=== PATIENT | female | born 1990 | race Caucasian/White ===

== ENCOUNTER 2017-04-05 12:33 | Inpatient (IN) | payer OTHER ==
[~2017-04-05] VITALS: Ht 170.2 cm; Wt 90.0 kg
[2017-04-05] MEDS ORDERED: TERBUTALINE 1 MG/ML, 1ML ONE (13:47)
[2017-04-05] MEDS ORDERED: TERBUTALINE 1 MG/ML, 1ML SQ ONE ×2 (14:00→15:30)
[2017-04-05] MEDS ORDERED: BETAMETHASONE 6 MG/ML, 5ML IM ONE (18:00)
[2017-04-05] MEDS ORDERED: PLEASE ENTER HEIGHT AND WEIGHT MC SCH (18:03)
[2017-04-05] MEDS: BETAMETHASONE 6 MG/ML, 5ML IM SCH (18:13)
[2017-04-05 20:00] VITALS: BP 128/74
[2017-04-05] MEDS ORDERED: NITROFURANTOIN (MACROBID) 100 MG CAPSULE ONE (20:45)
[2017-04-05] MEDS ORDERED: NITROFURANTOIN (MACROBID) 100 MG CAPSULE PO SCH (21:00)
[2017-04-05] MEDS ORDERED: MAGNESIUM SULF. PMX 20GM/500ML 500 ML IV ONE (22:56)
[2017-04-05] MEDS ORDERED: MAGNESIUM SULFATE PMX 4GM/100M 100 ML IVPB ONE (23:00)
[2017-04-05] MEDS ORDERED: CEFAZOLIN PMX 1GM/50ML 0 ML ONE (23:03)
[2017-04-05] MEDS: LACTATED RINGERS 1,000 ML IV PRN (23:24)
[2017-04-05] MEDS: MAGNESIUM SULF. PMX 20GM/500ML 500 ML IV SCH (23:26)
[2017-04-05] MEDS ORDERED: CEFAZOLIN PMX 2GM/50ML 50 ML IVPB SCH (23:30)
[2017-04-05] MEDS ORDERED: ONDANSETRON 2MG/ML, 2ML ONE (23:53)
[2017-04-06] MEDS ORDERED: ONDANSETRON 2MG/ML, 2ML IVPush PRN
[2017-04-06] MEDS ORDERED: INDOMETHACIN 25 MG CAPSULE PO ONE (03:00)
[2017-04-06] MEDS ORDERED: CEFAZOLIN PMX 2GM/50ML 50 ML IVPB SCH (06:00)
[2017-04-06] MEDS ORDERED: CEFAZOLIN PMX 1GM/50ML 50 ML ONE ×3 (06:01→18:05)
[2017-04-06] MEDS: CEFAZOLIN PMX 1GM/50ML 50 ML IVPB SCH ×3 (06:06→18:11)
[2017-04-06] MEDS ORDERED: MAGNESIUM SULF. PMX 20GM/500ML 500 ML IV ONE ×2 (06:30→17:11)
[2017-04-06] MEDS: MAGNESIUM SULF. PMX 20GM/500ML 500 ML IV SCH ×2 (06:33→17:14)
[2017-04-06 06:52] LABS: HEMATOCRIT 38.6 % (34.6-47.8); HEMOGLOBIN 13.1 g/dL (11.7-16.4)
[2017-04-06] MEDS: INDOMETHACIN 50 MG CAPSULE PO SCH ×5 (07:18→23:11)
[2017-04-06] MEDS: LACTATED RINGERS 1,000 ML IV PRN (12:04)
[2017-04-06] MEDS: BETAMETHASONE 6 MG/ML, 5ML IM SCH (18:12)
[2017-04-07] MEDS ORDERED: CEFAZOLIN PMX 1GM/50ML 50 ML ONE ×2 (00:10→06:12)
[2017-04-07] MEDS: CEFAZOLIN PMX 1GM/50ML 50 ML IVPB SCH ×2 (00:14→06:15)
[2017-04-07] MEDS ORDERED: MAGNESIUM SULF. PMX 20GM/500ML 500 ML IV ONE (03:02)
[2017-04-07] MEDS: INDOMETHACIN 50 MG CAPSULE PO SCH ×2 (03:04→07:13)
[2017-04-07] MEDS: LACTATED RINGERS 1,000 ML IV PRN (03:05)
[2017-04-07] MEDS: MAGNESIUM SULF. PMX 20GM/500ML 500 ML IV SCH (03:05)
[2017-04-07] MEDS ORDERED: DOCUSATE 100 MG CAPSULE ONE (09:24)
[2017-04-07] MEDS ORDERED: NITROFURANTOIN (MACROBID) 100 MG CAPSULE ONE ×2 (09:24→21:16)
[2017-04-07 09:30] VITALS: BP 114/64
[2017-04-07] MEDS ORDERED: DOCUSATE 50 MG/5 ML, 10ML UDC PO PRN (09:30)
[2017-04-07] MEDS: NITROFURANTOIN (MACROBID) 100 MG CAPSULE PO SCH ×2 (09:35→21:35)
[2017-04-07] MEDS ORDERED: CALCIUM CARBONATE 500 MG TAB.CHEW ONE (18:48)
[2017-04-07] MEDS: CALCIUM CARBONATE 500 MG TAB.CHEW PO PRN (18:50)
[2017-04-07 21:30] VITALS: BP 108/51
[2017-04-08] MEDS: SODIUM CHLORIDE FLUSH 3ML SYRINGE IVF SCH ×2 (09:30→19:55)
[2017-04-08] MEDS ORDERED: CALCIUM CARBONATE 500 MG TAB.CHEW ONE (19:53)
[2017-04-08] MEDS: CALCIUM CARBONATE 500 MG TAB.CHEW PO PRN (19:55)
[2017-04-08] MEDS ORDERED: DOCUSATE 100 MG CAPSULE ONE (21:07)
[2017-04-08] MEDS: DOCUSATE 100 MG CAPSULE PO PRN (21:14)
[2017-04-08] MEDS ORDERED: FENTANYL PF 100 MCG/2ML ONE ×2 (22:04→22:30)
[2017-04-08] MEDS ORDERED: LIDOCAINE 1%, 20ML ONE (22:30)
[2017-04-08] MEDS ORDERED: NEWBORN KIT ONE (22:30)
[2017-04-08] MEDS ORDERED: FENTANYL PF 100 MCG/2ML IV PRN (22:30)
[2017-04-08] MEDS ORDERED: OXYTOCIN 30U/ 0.9% NaCL 500ML 500 ML ONE ×2 (22:30→23:59)
[2017-04-08] MEDS ORDERED: MISOPROSTOL 200 MCG TABLET ONE (22:30)
[2017-04-08] MEDS ORDERED: FENTANYL PF 100 MCG/2ML IVPush PRN (22:30)
[2017-04-08] MEDS ORDERED: FENTANYL/BUPIV./NS/PF 0 ML EPIDCONT ONE (23:07)
[2017-04-08 23:13] LABS: HEMATOCRIT 37.6 % (34.6-47.8); HEMOGLOBIN 12.6 g/dL (11.7-16.4); WHITE BLOOD COUNT 13.5 x10^3/uL (3.4-10)
[2017-04-09] MEDS ORDERED: DOCUSATE 100 MG CAPSULE PO PRN
[2017-04-09] MEDS ORDERED: BISACODYL 10 MG SUPP PR PRN
[2017-04-09] MEDS ORDERED: ACETAMINOPHEN 325 MG TABLET PO PRN
[2017-04-09] MEDS ORDERED: MISOPROSTOL 200 MCG TABLET PR PRN
[2017-04-09] MEDS ORDERED: GLYCERIN ADULT SUPP PR PRN
[2017-04-09] MEDS ORDERED: OXYcodone/APAP 5/325MG TABLET PO PRN ×2
[2017-04-09] MEDS ORDERED: METOCLOPRAMIDE 5 MG/ML, 2ML IV PRN
[2017-04-09] MEDS ORDERED: ONDANSETRON 2MG/ML, 2ML IV PRN
[2017-04-09] MEDS: OXYTOCIN 30U/ 0.9% NaCL 500ML 500 ML IV SCH ×3 (00:03→19:49)
[2017-04-09 01:30] VITALS: BP 129/78
[2017-04-09] MEDS: IBUPROFEN 800 MG TABLET PO PRN ×3 (01:55→19:53)
[2017-04-09 05:20] VITALS: BP 127/78
[2017-04-09 07:16] LABS: HEMATOCRIT 32.4 % (34.6-47.8); WHITE BLOOD COUNT 12.7 x10^3/uL (3.4-10)
[2017-04-09] MEDS: PRENATAL VIT/IRON/FA 1 EACH TABLET PO SCH (10:49)
[2017-04-09] MEDS: DOCUSATE 100 MG CAPSULE PO PRN ×2 (10:49→19:53)
[2017-04-09 10:50] VITALS: BP 129/82
[2017-04-09 14:00] VITALS: BP 132/77
[2017-04-09 19:50] VITALS: BP 133/76
[2017-04-09 23:03] VITALS: BP 133/76
[2017-04-10] MEDS: OXYTOCIN 30U/ 0.9% NaCL 500ML 500 ML IV SCH (05:49)
[2017-04-10] MEDS: PRENATAL VIT/IRON/FA 1 EACH TABLET PO SCH (07:46)
[2017-04-10] MEDS: DOCUSATE 100 MG CAPSULE PO PRN (07:46)
[2017-04-10] MEDS: IBUPROFEN 800 MG TABLET PO PRN (07:46)
[2017-04-10] MEDS ORDERED: IBUP-1222 PO (07:56)
[2017-04-10 08:10] VITALS: BP 127/75
== END 2017-04-10 09:00 | disposition home or self-care (01) | DRG 775 ==
LOC: LDOP 12:33 → LDIP 15:55 → EDIP 15:55 → OBSVTOIN 17:32 → LDIP 04-08 22:24 → 2NW 04-09 00:46
PROVIDERS: ADMIT Obstetrics & Gynecology; ATTEND Obstetrics & Gynecology
PROC: 10E0XZZ Delivery of Products of Conception, External Approach (ICD-10-PCS; principal; 2017-04-08)
PROC: 0HQ9XZZ Repair Perineum Skin, External Approach (ICD-10-PCS; 2017-04-08)
DX: O60.14X0 Preterm labor third trimester with preterm delivery third trimester, not applicable or unspecified (principal); O70.0 First degree perineal laceration during delivery; Z37.0 Single live birth; Z3A.30 30 weeks gestation of pregnancy
CPT/HCPCS: 36415; 76805; 81001; 82731; 82803; 83735; 85025; 86850; 86900; 87081; 87086; 88307; G0378; J0690; J0702; J2405; J3010; J2590; J3105; J3475; J7120

== ENCOUNTER → 2020-01-29 | Outpatient (CLI) | payer OTHER ==
[~2020-01-29] MED LIST: IBUP-1222 PO
== END | disposition home or self-care (01) ==
LOC: CFH 08:58
PROVIDERS: ATTEND Family Medicine
DX: M54.2 Cervicalgia (principal)
CPT/HCPCS: 72040